=== PATIENT | female | born 1995 | race Two or more races ===

== ENCOUNTER 2017-07-20 09:29 | Emergency (ER) | payer SELFPAY ==
[~2017-07-20] VITALS: Ht 167.6 cm; Wt 68.0 kg
[2017-07-20] MEDS ORDERED: IBUPROFEN 600MG TABLET PO ONE (11:00)
[2017-07-20 11:03] VITALS: BP 114/65
== END 2017-07-20 11:36 | disposition home or self-care (01) ==
LOC: ER 09:36
DX: M54.2 Cervicalgia (principal); V43.52XA Car driver injured in collision with other type car in traffic accident, initial encounter; Y93.89 Activity, other specified; Y92.488 Other paved roadways as the place of occurrence of the external cause
CPT/HCPCS: 99283